=== PATIENT | female | born 1970 | race African-American/Black ===

== ENCOUNTER 2024-08-30 17:56 | Emergency (ER) | payer BC ==
[2024-08-30] MEDS ORDERED: Acetaminophen 500 MG TAB ONE (18:36)
== END 2024-08-30 19:32 | disposition home or self-care (01) ==
LOC: CSHERS 17:56
DX: M54.50 Low back pain, unspecified (principal); R51.9 Headache, unspecified; I10 Essential (primary) hypertension; V89.2XXA Person injured in unspecified motor-vehicle accident, traffic, initial encounter; Y93.89 Activity, other specified
CPT/HCPCS: 99283